=== PATIENT | female | born 1990 | race Two or more races ===

== ENCOUNTER 2019-09-30 16:07 | Observation (INO) | payer MEDICAID ==
[~2019-09-30] VITALS: Ht 162.6 cm; Wt 68.0 kg
[2019-09-30] MEDS ORDERED: BETAMETHASONE ACET (6MG/ML) 5ML VIAL IM ONE (18:00)
== END 2019-09-30 18:30 | disposition home or self-care (01) | DRG 566 ==
LOC: LDRP 16:07
PROVIDERS: ADMIT Specialist; ATTEND Specialist
DX: O36.5930 Maternal care for other known or suspected poor fetal growth, third trimester, not applicable or unspecified (principal); Z3A.36 36 weeks gestation of pregnancy
CPT/HCPCS: 59025; 76818; 81002; 96372; G0378; J0702

== ENCOUNTER 2019-10-04 13:15 | Inpatient (IN) | payer MEDICAID ==
[2019-10-04] VITALS (11 sets, daily range): BP systolic 100–129; BP diastolic 58–89
[~2019-10-04] VITALS: Ht 162.6 cm; Wt 83.9 kg
[2019-10-04] MEDS ORDERED: MAGNESIUM SULFATE 40MG/ML 1,000 ML IV SCH (13:37)
[2019-10-04] MEDS ORDERED: hydrALAZINE HCL 20 MG/ML VL IV ONE (13:45)
[2019-10-04] MEDS ORDERED: MAGNESIUM SULFATE 0 ML IV ONE (14:03)
[2019-10-04] MEDS ORDERED: SUCCINYLCHOLINE CHLORIDE 20 MG/ML 10ML VIAL IV ONE (14:20)
[2019-10-04] MEDS ORDERED: PROPOFOL 10 MG/ML 20 ML IV ONE (14:21)
[2019-10-04 14:27] LABS: Basophils # (auto) 0 uL; Basophils % (auto) 0.5 % (0.0-2.0); Eosinophils # (auto) 0 uL; Eosinophils % (auto) 0.5 % (0.0-7.0); Hematocrit 37.5 % (36.0-46.0); Hemoglobin 12.3 g/dL (12.2-16.2); Lymphocytes # (auto) 1.3 uL; Mean Corpuscular Hemoglobin 29.1 pg (28.0-32.0); Mean Corpuscular Hgb Conc. 32.8 g/dL (32.0-36.0); Mean Corpuscular Volume 88.9 fL (80.0-100.0); Monocytes # (auto) 0.5 uL; Monocytes % (auto) 5.6 % (0.0-12.0); Neutrophils # (auto) 7.1 uL; Neutrophils % (auto) 79.4 % (37.0-80.0); Nucleated Red Blood Cells % 0.7 %; Platelet Count (auto) 180 10^3/uL (140-450); Red Blood Cells 4.22 10^6/uL (4.0-5.20); Red Cell Distribution Width 14.2 % (11.8-14.3)
[2019-10-04 14:28] LABS: Urine Bacteria NONE SEEN /hpf (None Seen); Urine Blood TRACE /uL (Negative); Urine Mucus FEW (None Seen); Urine Specific Gravity 1.019 (1.001-1.035); Urine WBC 10 /hpf (0 - 5)
[2019-10-04] MEDS ORDERED: HYDROmorphone HCL 2 MG/ML VL ONE (14:30)
[2019-10-04] MEDS ORDERED: fentaNYL CITRATE 100 MCG/2 ML VL ONE (14:30)
[2019-10-04] MEDS ORDERED: MIDAZOLAM HCL 1MG/1ML-2 ML VIAL ONE (14:31)
[2019-10-04] MEDS ORDERED: CARBOPROST TROMETHAMINE 250 MCG/1ML VIAL IM ONE ×3 (14:35→14:41)
[2019-10-04 14:38] LABS: Albumin 2.5 g/dL (3.4-5.0); Calcium 7.9 mg/dL (8.5-10.1); INR 0.92 (0.9-1.15); Partial Thromboplastin Time 27.9 sec (23.64-32.05); Potassium 3.8 mmol/L (3.5-5.1); Uric Acid 5.8 mg/dL (2.6-6.0)
[2019-10-04 14:42] LABS: Bilirubin, Total 0.3 mg/dL (0.2-1.0); Total Protein 5.9 g/dL (6.4-8.2)
[2019-10-04] MEDS ORDERED: LACT. RINGERS/OXYTOCIN 20UNITS 1,000 ML IV SCH (14:53)
[2019-10-04] MEDS ORDERED: NEOSTIGMINE 1 MG/ML INJ (10mg/10ML VIAL) ONE (14:55)
[2019-10-04] MEDS ORDERED: ceFAZolin 1GM VL ONE (14:55)
[2019-10-04] MEDS ORDERED: GLYCOPYRROLATE 0.2 MG/ML 1ML VIAL ONE (14:55)
[2019-10-04] MEDS ORDERED: OXYTOCIN 10 UNIT/ML 10ML VIAL ONE (14:56)
[2019-10-04] MEDS ORDERED: ONDANSETRON HCL 4 MG/2 ML VIAL IV PRN (15:00)
[2019-10-04] MEDS ORDERED: MEPERIDINE HCL (25 MG/ML) 1ML VIAL ONE (15:04)
[2019-10-04] MEDS ORDERED: ONDANSETRON HCL 4 MG/2 ML VIAL ONE (15:04)
[2019-10-04] MEDS ORDERED: HYDROmorphone HCL 2 MG/ML VL IV PRN (15:15)
[2019-10-04] MEDS ORDERED: KETOROLAC TROMETH 30 MG/ML 1ML VIAL IV ONE (15:15)
[2019-10-04] MEDS ORDERED: fentaNYL CITRATE 100 MCG/2 ML VL IV PRN (15:15)
[2019-10-04] MEDS ORDERED: METOCLOPRAMIDE HCL 5MG/ml INJ 2ml VIAL IV PRN (15:15)
[2019-10-04] MEDS ORDERED: MORPHINE SULF INJ 2 MG/ML SYRINGE 1ML IV PRN (15:15)
--- NOTE | 2019-10-04 15:50 | NUR ---
Pt to room 8b from PACU Report received from Ruchi customs director. Fundus firm at u, drainage outlined on dressing. Vitals stable, scds applied, baby skin to skin. Will continue to monitor.
--- NOTE | 2019-10-04 16:24 | NUR ---
Teaching: Reviewed information in [facility] [employer] booklet with patient. Discussed benefits of and risks associated with not . Discussed different positions, proper latch, feeding cues, and baby-led . Provided information of medication side effects related to . All questions and concerns addressed at this time. Patient verbalized understanding of information.
--- NOTE | 2019-10-04 16:25 | NUR ---
Bottle-feeding Education: Patient encouraged to breastfeed. Benefits of and the risk of providing formula to was discussed. Patient verbalized understanding of the benefits and is aware of risk and insists on bottle-feeding. Formula provided and instruction on formula preperation from the [employer] [facility] booklet reviewed with patient.
[2019-10-04 17:08] LABS: Alcohol, Urine < 3.0 mg/dL (0-5); Amphetamine Screen, Urine NEGATIVE (NEGATIVE); Barbiturate Scree,Urine NEGATIVE (NEGATIVE); Benzodiazephine Screen, Urine NEGATIVE (NEGATIVE); Cannabinoid Screen, Urine NEGATIVE (NEGATIVE); Cocaine Screen, Urine NEGATIVE (NEGATIVE); Opiate Scree,Urine NEGATIVE (NEGATIVE); Phencyclidine Screen, Urine NEGATIVE (NEGATIVE)
[2019-10-04] MEDS: MORPHINE SULF INJ 2 MG/ML SYRINGE 1ML IV PRN ×2 (17:21→23:47)
--- NOTE | 2019-10-04 17:34 | NUR ---
Kendra care provided pt cleaned, pad changed, fundus firm at u small bleeding noted.
[2019-10-04] MEDS ORDERED: ACETAMINOPHEN IV 100 ML IV ONE (19:45)
[2019-10-04 20:27] LABS: Basophils # (auto) 0 uL; Basophils % (auto) 0.2 % (0.0-2.0); Eosinophils # (auto) 0 uL; Eosinophils % (auto) 0.1 % (0.0-7.0); Hematocrit 31.5 % (36.0-46.0); Hemoglobin 10.3 g/dL (12.2-16.2); Lymphocytes # (auto) 1.2 uL; Lymphocytes % (auto) 6.6 % (10.0-50.0); Mean Corpuscular Hgb Conc. 32.9 g/dL (32.0-36.0); Mean Corpuscular Volume 88.1 fL (80.0-100.0); Monocytes # (auto) 1.2 uL; Neutrophils # (auto) 15.1 uL; Neutrophils % (auto) 86.1 % (37.0-80.0); Nucleated Red Blood Cells % 0.4 %; Platelet Count (auto) 130 10^3/uL (140-450); Red Blood Cells 3.57 10^6/uL (4.0-5.20); Red Cell Distribution Width 14.2 % (11.8-14.3); White Blood Cell 17.6 10^3/uL (4.4-10.8)
[2019-10-04] MEDS: ceFAZolin 1GM/50ML 50 ML IV SCH (22:46)
[2019-10-05] VITALS (11 sets, daily range): BP systolic 100–130; BP diastolic 47–89
--- NOTE | 2019-10-05 01:06 | NUR ---
Output SBAR and update to Mario FERNANDEZ, including but not limited to this pt of Dr. Lewis with decreased urine output- earlier this shift averaging 30ml/hr and now averaging 10ml/hr since 0. Order for IV bolus at this time.
--- NOTE | 2019-10-05 03:20 | NUR ---
Output update SBAR and update to Mario Reddy CNM regarding output. Continue to monitor.
[2019-10-05] MEDS ORDERED: LACTATED RINGER'S 1,000 ML IV SCH ×3 (03:30→07:15)
[2019-10-05] MEDS: MORPHINE SULF INJ 2 MG/ML SYRINGE 1ML IV PRN (03:50)
--- NOTE | 2019-10-05 05:13 | NUR ---
Ambulation: Patient OOB with standby assistance by RN. Patient ambulated to bedside chair with steady gait. Patient remains with farah catheter at this time. Clean gown provided and bed linen changed. Pt sitting upright in chair at her own request, no SOB or distress noted.
--- NOTE | 2019-10-05 05:46 | NUR ---
Output update Dr. Lewis calls unit for SBAR and update, including urine output discussed. Orders to obtain CBC as previously ordered and to increase maintenance fluids from 125ml/hr to 150ml/hr. Awaiting CBC results, continue care.
[2019-10-05 07:10] LABS: Basophils # (auto) 0 uL; Basophils % (auto) 0.2 % (0.0-2.0); Eosinophils # (auto) 0 uL; Eosinophils % (auto) 0.3 % (0.0-7.0); Hematocrit 26.6 % (36.0-46.0); Hemoglobin 8.8 g/dL (12.2-16.2); Lymphocytes # (auto) 1.3 uL; Lymphocytes % (auto) 8.7 % (10.0-50.0); Mean Corpuscular Hemoglobin 29.3 pg (28.0-32.0); Mean Corpuscular Volume 88.8 fL (80.0-100.0); Monocytes % (auto) 6.5 % (0.0-12.0); Neutrophils % (auto) 84.3 % (37.0-80.0); Nucleated Red Blood Cells % 0.2 %; Platelet Count (auto) 100 10^3/uL (140-450); Red Blood Cells 2.99 10^6/uL (4.0-5.20); Red Cell Distribution Width 13.9 % (11.8-14.3); White Blood Cell 15.4 10^3/uL (4.4-10.8)
[2019-10-05] MEDS ORDERED: BISACODYL 10 MG RECT SUPP PR PRN (07:15)
[2019-10-05] MEDS ORDERED: HYDROcodone-ACET 5/325MG TAB PO PRN (07:15)
--- NOTE | 2019-10-05 07:20 | NUR ---
Dr. Lewis at bedside Dr. Lewis in to see pt, CBC reviewed. Orders received for Day 1 post op orders, continue to leave farah in to monitor output and continue LR at 150ml/hr. Discussed with Jeff Gilbert RN.
[2019-10-05] MEDS: HYDROcodone-ACET 5/325MG TAB PO PRN ×3 (08:18→23:00)
[2019-10-05] MEDS: ceFAZolin 1GM/50ML 50 ML IV SCH ×2 (08:19→16:12)
[2019-10-05] MEDS ORDERED: MAGNESIUM SULFATE 100 ML IV ONE (10:00)
--- NOTE | 2019-10-05 10:51 | NUR ---
DR. ERNANDEZ NOTIFIED OF PTS TRENDING VITAL SIGNS, TRENDING HOURLY URINE OUTPUTS, PTS STATES PAIN IS NOT CONTROLLED WITH THE IV MORPHINE OR THE 2 TABS OF NORCO THAT IS ORDERED . ORDERS RECEIVED FROM DR. ERNANDEZ FOR OFIRMEV 1000MG ONCE. READ BACK AND VERIFIED ORDERS. WILL CARRY OUT.
[2019-10-05] MEDS ORDERED: ACETAMINOPHEN IV 1000 MG/100ML (10MG/ML) IV ONE (11:00)
[2019-10-05] MEDS: DOCUSATE SOD 100 MG CAP PO SCH ×2 (11:25→21:27)
[2019-10-05] MEDS: DOCUSATE CALCIUM 240 MG CAP PO SCH (11:25)
[2019-10-05] MEDS: IBUPROFEN 800 MG TAB PO PRN ×2 (11:26→21:27)
[2019-10-05] MEDS: SIMETHICONE 80 MG CHEWABLE TABLET PO SCH ×3 (12:01→21:27)
--- NOTE | 2019-10-05 13:00 | NUR ---
Farah catheter dc'd Order to discontinue farah catheter. Farah dc'd with clean technique following deflation of balloon, 250ml clear yellow urine remaining in farah bag upon removal. Patient tolerated well with no complaints of pain. Pt educated to notify RN when needing to void. No distress noted. Will continue to monitor.
[2019-10-05] MEDS ORDERED: LACTATED RINGER'S 1,000 ML IV ONE (15:45)
--- NOTE | 2019-10-05 15:45 | NUR ---
DR. ERNANDEZ ON UNIT, STATUS UPDATE GIVEN ON PT, TRENDING VITAL SIGNS GIVEN, PT HAS NOT PASSED FLATUS YET. ORDERS RECEIVED FROM DR. ERNANDEZ FOR LR AT 30ML/HR. READ BACK AND VERIFIED ORDERS. WILL CARRY OUT.
--- NOTE | 2019-10-05 16:50 | NUR ---
PT AMBULATED TO BATHROOM VIA STEADY GAIT, NO DISTRESS NOTED. PT VOIDED 400ML PINK TINGED URINE WITHOUT DIFFICULTY, ENEIDA CARE PROVIDED, NEW GOWN, SOCKS AND PADS PROVIDED. PT ESCORTED TO BEDSIDE CHAIR. WILL CONTINUE TO MONITOR.
[2019-10-06] MEDS ORDERED: PREN-96 PO (02:35)
[2019-10-06 03:00] VITALS: BP 122/78
[2019-10-06] MEDS: HYDROcodone-ACET 5/325MG TAB PO PRN ×4 (03:18→23:06)
[2019-10-06] MEDS: SIMETHICONE 80 MG CHEWABLE TABLET PO SCH ×4 (05:53→21:23)
[2019-10-06 06:55] VITALS: BP 112/79
--- NOTE | 2019-10-06 06:55 | NUR ---
PT STATES SHE HAS PASSED FLATUS AND HAS ACTIVE BOWEL SOUNDS, ADVANCING DIET DIRECTED. WILL CONTINUE TO MONITOR.
[2019-10-06] MEDS: DOCUSATE CALCIUM 240 MG CAP PO SCH (10:12)
[2019-10-06] MEDS: DOCUSATE SOD 100 MG CAP PO SCH ×2 (10:12→21:23)
[2019-10-06] MEDS: IBUPROFEN 800 MG TAB PO PRN ×2 (10:13→21:24)
[2019-10-06 11:00] VITALS: BP 126/83
[2019-10-06 15:10] VITALS: BP 124/72
--- NOTE | 2019-10-06 15:30 | NUR ---
PT STATES "MY IV IS HURTING." ASSESSED PS IV, IV NOTED TO BE INFILTRATED. IV REMOVED WITH CLEAN, STERILE TECHNIQUE, CATHETER FULLY INTACT. PRESSURE DRESSING APPLIED TO SITE. PT TOLERATED WELL. WILL CONTINUE TO MONITOR.
--- NOTE | 2019-10-06 16:47 | NUR ---
pt given supplies to shower. no distress noted.
[2019-10-06 19:00] VITALS: BP 134/86
[2019-10-06 23:15] VITALS: BP 123/78
[2019-10-07 02:59] VITALS: BP 119/70
[2019-10-07] MEDS: HYDROcodone-ACET 5/325MG TAB PO PRN (05:17)
[2019-10-07] MEDS: SIMETHICONE 80 MG CHEWABLE TABLET PO SCH (05:27)
[2019-10-07 07:00] VITALS: BP 130/81
--- NOTE | 2019-10-07 07:00 | NUR ---
Assessment complete. updated on plan of care. Call light in reach. Sd rails up x2. Bed low. Given printed discharge education. Board updated. Incision clean dry intact, no redness, no edema, no echimosis, edges well approximated. Secured with steri strips. Hank removed by ultra sound technician Nuria. pt tolerated well.
[2019-10-07] MEDS: IBUPROFEN 800 MG TAB PO PRN (07:24)
--- NOTE | 2019-10-07 08:45 | NUR ---
Discharge: Discharge instructions given as ordered. Pt encouraged to follow up with [facility] as instructed. All questions and concerns addressed. Patient verbalized understanding. Medication reconciliation completed and copy given to patient. All required/requested vaccines given and copies of vaccinations given to patient. Patient encouraged to prepare to depart unit.
--- NOTE | 2019-10-07 09:35 | NUR ---
Discharge: Patient taken to vehicle via ambulation with all personal belongings, accompanied by staff and family member. No distress noted at time of departure, no adverse changes in status since initial assessment.
== END 2019-10-07 09:31 | disposition home or self-care (01) | DRG 540 ==
LOC: LDRP 13:15 → OBSVTOIN 13:45 → LDRP 14:06 → UNDODISIN 10-06 11:25
PROVIDERS: ADMIT Obstetrics & Gynecology; ATTEND Obstetrics & Gynecology
PROC: 10D00Z1 Extraction of Products of Conception, Low, Open Approach (ICD-10-PCS; principal; 2019-10-04 14:21)
DX: O36.5930 Maternal care for other known or suspected poor fetal growth, third trimester, not applicable or unspecified (principal); O45.93 Premature separation of placenta, unspecified, third trimester; O13.4 Gestational [pregnancy-induced] hypertension without significant proteinuria, complicating childbirth; O34.211 Maternal care for low transverse scar from previous cesarean delivery; Z37.0 Single live birth; Z3A.37 37 weeks gestation of pregnancy
CPT/HCPCS: 36415; 51702; 59025; 80053; 80307; 81001; 84112; 84550; 85025; 85610; 85730; 86592; 86850; 86900; 86901; 94762; 96361; 96365; 96366; 96372; 96375; G0378; J0131; J0330; J0690; J2250; J2405; J2590; J2704

== ENCOUNTER 2021-03-19 16:28 | Observation (INO) | payer MEDICAID ==
[~2021-03-19] VITALS: Ht 162.6 cm; Wt 83.9 kg
[~2021-03-19 16:28] MED LIST: PREN-96 PO
== END 2021-03-19 19:29 | disposition home or self-care (01) ==
LOC: LDRP 16:28
PROVIDERS: ADMIT Specialist; ATTEND Specialist
DX: O34.219 Maternal care for unspecified type scar from previous cesarean delivery (principal); Z3A.35 35 weeks gestation of pregnancy
CPT/HCPCS: 59025; 76818; 81002; G0378

== ENCOUNTER 2021-03-21 18:20 | Observation (INO) | payer MEDICAID ==
[2021-03-21] MEDS ORDERED: BETAMETHASONE ACET (6MG/ML) 5ML VIAL IM ONE (20:15)
[2021-03-21 21:18] LABS: Urine Bacteria NONE SEEN /hpf (None Seen); Urine Blood Negative /uL (Negative); Urine Specific Gravity 1.009 (1.001-1.035); Urine WBC 1 /hpf (0 - 5)
[2021-03-21 21:33] LABS: Alcohol, Urine < 3.0 mg/dL (0-10); Amphetamine Screen, Urine NEGATIVE (NEGATIVE); Barbiturate Scree,Urine NEGATIVE (NEGATIVE); Benzodiazephine Screen, Urine NEGATIVE (NEGATIVE); Cannabinoid Screen, Urine NEGATIVE (NEGATIVE); Cocaine Screen, Urine NEGATIVE (NEGATIVE); Opiate Scree,Urine NEGATIVE (NEGATIVE); Phencyclidine Screen, Urine NEGATIVE (NEGATIVE)
== END 2021-03-21 22:49 | disposition home or self-care (01) ==
LOC: LDRP 18:20
PROVIDERS: ADMIT Specialist; ATTEND Specialist
DX: O36.5930 Maternal care for other known or suspected poor fetal growth, third trimester, not applicable or unspecified (principal); Z20.822 Contact with and (suspected) exposure to COVID-19; Z3A.35 35 weeks gestation of pregnancy; Z87.59 Personal history of other complications of pregnancy, childbirth and the puerperium; Z98.891 History of uterine scar from previous surgery; Z79.899 Other long term (current) drug therapy
CPT/HCPCS: 36415; 59025; 80307; 81001; 81002; 87426; 96360; 96361; 96372; G0378; J0702